=== PATIENT | female | born 1970 | race Hispanic/Latino ===

== ENCOUNTER 2019-10-22 12:36 | Emergency (ER) | payer SELFPAY ==
[~2019-10-22] VITALS: Ht 152.4 cm; Wt 69.9 kg
[2019-10-22] MEDS ORDERED: KETOROLAC TROMETHAMINE 60 MG/2 ML VIAL IM ONE (14:00)
--- NOTE | 2019-10-22 14:40 | Diagnostic Imaging Report ---
Exam: Left elbow radiographs-3 views; left forearm radiographs-3 views; left wrist radiographs-3 views Clinical History: Trauma. Comparison: None. Findings/Impression: Somewhat limited evaluation of the elbow. There is a large elbow joint effusion. There is a punctate bony fragment along the posterior aspect of the distal humerus on the lateral view. On the oblique view, there may be a tiny bony fragment, possibly corticated, adjacent to the radial head. These may represent fractures. CT of the elbow without contrast is recommended for further evaluation. No evidence of acute osseous abnormality in the forearm or wrist. Signed by: Dr. Juanito Wooten MD on 10/22/2019 2:37 PM
[2019-10-22] MEDS ORDERED: TYLENOL WITH C1 EACH PO (15:25)
== END 2019-10-22 15:44 | disposition home or self-care (01) ==
LOC: ER 12:36
DX: S42.302A Unspecified fracture of shaft of humerus, left arm, initial encounter for closed fracture (principal); W01.0XXA Fall on same level from slipping, tripping and stumbling without subsequent striking against object, initial encounter; Y93.02 Activity, running; Y92.480 Sidewalk as the place of occurrence of the external cause
CPT/HCPCS: 29125; 73080; 73090; 73110; 99284; J1885